=== PATIENT | female | born 1955 | race Caucasian/White ===

== ENCOUNTER 2019-01-18 06:31 | Day surgery (SDC) | payer MEDICAID ==
[~2019-01-18] VITALS: Ht 160 cm; Wt 74.4 kg
[~2019-01-18 06:31] MED LIST: ALBU18HF2 IH; ASPI-1159 PO; ATOR10TA69 PO; CYCLOPENTOLATE HCL 1% OPHTH DROPS 2ML RIGHTEYE ONE; INSU100I24 SQ; LISI10TA5 PO; PHENYLEPHRINE HCL 10% OPHTH DROPS 5ML RIGHTEYE ONE; TROPICAMIDE 1% OPHTH DROPS 15ML RIGHTEYE ONE
[2019-01-18] MEDS ORDERED: LACTATED RINGERS 1,000 ML IV SCH (07:50)
[2019-01-18] MEDS ORDERED: BALANCED SALT IRRIG SOLN 15ML ONE (08:00)
[2019-01-18] MEDS ORDERED: LIDOCAINE HCL/PF 2% 20 MG/ML 10ML VIAL ONE (08:00)
[2019-01-18] MEDS ORDERED: CIPROFLOXACIN 0.3% OPHTH SOLN 2.5ML ONE (08:00)
[2019-01-18] MEDS ORDERED: NEO/POLYMYX B SULF/DEXAMETH OPHTH OINT 3.5GM ONE (08:00)
[2019-01-18] MEDS ORDERED: TETRACAINE 0.5% OPHTH DROPS 4ML ONE (08:00)
[2019-01-18] MEDS ORDERED: HYALURONATE SODIUM 14 MG/ML 0.85ML SYRINGE IO ONE (08:20)
[2019-01-18] MEDS ORDERED: BALANCED SALT IRRIG SOLN COMB1 500ML OP ONE (08:30)
[2019-01-18] MEDS ORDERED: MIDAZOLAM HCL 2 MG/2 ML VIAL ONE (08:34)
== END 2019-01-18 10:15 | disposition home or self-care (01) ==
LOC: OR 06:31
PROVIDERS: ATTEND Ophthalmology
DX: E11.36 Type 2 diabetes mellitus with diabetic cataract (principal); H25.89 Other age-related cataract; I10 Essential (primary) hypertension; J45.909 Unspecified asthma, uncomplicated
CPT/HCPCS: 66984; 82962; J2250; J3490; V2632